=== PATIENT | male | born 1985 | race Caucasian/White ===

== ENCOUNTER 2019-11-29 04:14 | Inpatient (IN) | payer MEDICAID ==
[2019-11-29 06:57] VITALS: BP 115/79
[2019-11-29] MEDS ORDERED: LORazepam 0.5 MG TABLET PO PRN (11:30)
[2019-11-29] MEDS ORDERED: ZOLPIDEM TARTRATE 10 MG TABLET PO PRN (11:30)
[2019-11-29] MEDS ORDERED: HALOPERIDOL 1 MG TABLET PO PRN (11:30)
[2019-11-29 16:08] VITALS: BP 106/73
[2019-11-30 07:01] VITALS: BP 116/80
[2019-11-30 08:21] VITALS: BP 103/61
[2019-11-30] MEDS: LORazepam 2 MG TABLET PO PRN (15:52)
[2019-11-30 16:44] VITALS: BP 107/70
[2019-12-01 00:20] VITALS: BP 112/65
[2019-12-01] MEDS: LORazepam 2 MG TABLET PO PRN ×2 (10:13→17:57)
[2019-12-01 16:22] VITALS: BP 129/76
[2019-12-02 06:59] VITALS: BP 118/72
[2019-12-02 08:19] VITALS: BP 117/69
[2019-12-02] MEDS: NICOTINE 21 MG/24 HOUR PATCH TD SCH (09:08)
[2019-12-02] MEDS: LORazepam 2 MG TABLET PO PRN ×2 (16:07→21:51)
[2019-12-02 16:13] VITALS: BP 116/79
[2019-12-02] MEDS ORDERED: OLANZapine 10 MG TABLET PO SCH (21:00)
[2019-12-03 04:59] VITALS: BP 124/82
[2019-12-03 08:19] VITALS: BP 116/64
[2019-12-03] MEDS: NICOTINE 21 MG/24 HOUR PATCH TD SCH (09:49)
[2019-12-03 16:25] VITALS: BP 112/67
[2019-12-03] MEDS: LORazepam 2 MG TABLET PO PRN (20:09)
[2019-12-03] MEDS: OLANZapine 7.5 MG TABLET PO SCH (20:09)
[2019-12-03] MEDS ORDERED: OLAN7.5T2 PO (22:37)
[2019-12-04 03:11] VITALS: BP 111/77
[2019-12-04 08:23] VITALS: BP 121/63
[2019-12-04] MEDS: NICOTINE 21 MG/24 HOUR PATCH TD SCH (10:28)
[2019-12-04] MEDS: LORazepam 2 MG TABLET PO PRN ×2 (13:17→20:45)
[2019-12-04 16:19] VITALS: BP 118/64
[2019-12-04] MEDS: OLANZapine 7.5 MG TABLET PO SCH (20:45)
[2019-12-05 04:56] VITALS: BP 120/70
[2019-12-05 08:11] VITALS: BP 133/63
[2019-12-05] MEDS: NICOTINE 21 MG/24 HOUR PATCH TD SCH (09:00)
== END 2019-12-05 13:15 | disposition home or self-care (01) | DRG 885 ==
LOC: B3A 06:08
PROVIDERS: ADMIT Psychiatry & Neurology Psychiatry; ATTEND Psychiatry & Neurology Psychiatry
DX: F25.9 Schizoaffective disorder, unspecified (principal); R45.851 Suicidal ideations; F14.90 Cocaine use, unspecified, uncomplicated; F12.90 Cannabis use, unspecified, uncomplicated; F11.90 Opioid use, unspecified, uncomplicated
CPT/HCPCS: Z7610